=== PATIENT | female | born 1980 | race Caucasian/White ===

== ENCOUNTER 2023-06-17 21:10 | Emergency (ER) | payer OTHER, SELFPAY ==
[2023-06-17 21:16] VITALS: BP 120/80; PULSE 95; RESP 18; TEMP 36.6; O2SAT 100; BMI 24.9
--- NOTE | 2023-06-17 21:29 | ED_ITS ---
HPI - General Adult General Chief complaint: Headache Stated complaint: HEADACHE Time Seen by Provider: 06/17/23 21:23 Source: patient Mode of arrival: walk-in History of Present Illness HPI narrative: 43-year-old female presents for headache. It's frontal and she's had it for three days. She's been taking some ipwy-dxs-opoxdpm medications for it. She has a history of these headaches. No trauma fever or stiff neck and it's been continuous and it's moderate. No localized weakness. Related Data Home Medications Medication Instructions Recorded Confirmed levothyroxine 200 mcg tablet mcg 06/17/23 oxycodone-acetaminophen 10 mg-325 tab 06/17/23 mg tablet Previous Rx's Medication Instructions Recorded klasxsyhwh-dwvdhhtxlwkil-irsbvmrn 1 cap PO Q6H PRN pain 5 days #20 06/18/23 50 mg-300 mg-40 mg capsule caps (Fioricet) Allergies Allergy/AdvReac Type Severity Reaction Status Date / Time amoxicillin Allergy Verified 06/17/23 21:22 azithromycin [From Zithromax] Allergy Verified 06/17/23 21:22 Penicillins Allergy Verified 06/17/23 21:22 Review of Systems ROS Narrative A ten point review of systems is negative except as noted above. PFSH PFSH Social History Smoking status: Never smoker Exam Narrative Exam Narrative: Nurses note and vital signs reviewed and patient is not hypoxic. General: The patient appears well and in no apparent distress. Patient is resting comfortably on cart. Skin: Warm, dry, no pallor noted. There is no rash noted. Head: Normocephalic, atraumatic Eye: Normal conjunctiva, no drainage Ears, Nose, Mouth, and Throat: oral mucosa is moist. Nares patent. neck supple, no nuchal rigidity Cardiovascular: Regular Rate and Rhythm Respiratory: Patient is in no distress, no accessory muscle use, lungs are clear to auscultation, no wheezing, rales or rhonchi Back: non-tender GI: soft and nontender Musculoskeletal: The patient has no evidence of calf tenderness, no pitting edema, symmetrical pulses noted bilaterally Neurological: A&O, normal speech; upper and lower extremity strength intact and symmetric Psychiatric: Cooperative Constitutional Vital Signs, click to edit/add: Last Vital Signs Temp 97.9 F 06/17/23 21:16 Pulse 95 H 06/17/23 21:16 Resp 18 06/17/23 21:16 BP 120/80 06/17/23 21:16 Pulse Ox 100 06/17/23 21:16 O2 Del Method Room Air 06/17/23 21:16 Course Vital Signs Vital signs: Vital Signs Temperature 97.9 F 06/17/23 21:16 Pulse Rate 95 H 06/17/23 21:16 Respiratory Rate 18 06/17/23 21:16 Blood Pressure 120/80 06/17/23 21:16 Pulse Oximetry 100 06/17/23 21:16 Oxygen Delivery Method Room Air 06/17/23 21:16 Temperature 97.9 F 06/17/23 21:16 Pulse Rate 95 H 06/17/23 21:16 Respiratory Rate 18 06/17/23 21:16 Blood Pressure 120/80 06/17/23 21:16 Pulse Oximetry 100 06/17/23 21:16 Oxygen Delivery Method Room Air 06/17/23 21:16 Medical Decision Making MDM Narrative Medical decision making narrative: her workup including CAT scan is negative. Note is made of the possible technique finding on the CAT scan and physical examination shows no pharyngeal or retropharyngeal swelling. She is feeling improved and is able to be discharged home. Treatment diagnosis and follow-up were discussed with the patient. Differential Diagnosis Differential Diagnosis: intracranial hemorrhage, tension headache, sinusitis Lab Data Lab results reviewed: Yes I reviewed the patient's lab results Labs: Lab Results 06/17/23 Range/Units 21:48 WBC 6.9 (4.0-11.0) 10^3/uL RBC 3.69 L (4.20-5.40) 10^6/uL Hgb 11.1 L (12.0-16.0) g/dL Hct 34.7 L (36.0-48.0) % MCV 94.0 (81.0-99.0) fL MCH 30.1 (26.7-34.0) pg MCHC 32.0 (29.9-35.2) g/dL RDW 12.5 (11.0-15.0) % Plt Count 338 (150-450) 10^3/uL MPV 9.9 (9.5-13.5) fL Neut % (Auto) 37.7 L (43.0-75.0) % Lymph % (Auto) 45.0 (20.5-60.0) % [place] % (Auto) 8.6 (1.7-12.0) % Eos % (Auto) 7.7 H (0.9-7.0) % Baso % (Auto) 0.9 (0.2-2.0) % Neut # (Auto) 2.6 (1.4-6.5) 10^3/uL Lymph # (Auto) 3.1 (1.2-3.8) 10^3/uL [place] # (Auto) 0.6 (0.3-0.8) 10^3/uL Eos # (Auto) 0.5 (0.0-0.7) 10^3/uL Baso # (Auto) 0.1 (0.0-0.1) 10^3/uL Abs Immat Gran (auto) 0.01 (0.00-0.03) 10^3/uL Imm/Tot Granulo (auto) 0.1 (0.0-0.5) % Sodium 139 (136-145) mmol/L Potassium 3.6 (3.5-5.1) mmol/L Chloride 103 (98-107) mmol/L Carbon Dioxide 32.6 H (21.0-32.0) mmol/L Anion Gap 7.0 BUN 7.0 (7.0-18.0) mg/dL Creatinine 0.84 (0.55-1.02) mg/dL Est GFR ( Amer) >60 (>=60) Est GFR (Non-Af Amer) >60 (>=60) BUN/Creatinine Ratio 8.3 Glucose 87 (74-106) mg/dL Calcium 8.4 L (8.5-10.1) mg/dL TSH 1.745 (0.358-3.740) uIU/mL Imaging Data CT scan - head: Radiologist's impression: Procedure: CT head/brain wo con EXAM: CT head/brain wo con CLINICAL INDICATION: LÓPEZ COMPARISON: None TECHNIQUE: Axial CT images of the brain were obtained without contrast. Dose reduction techniques were achieved by using automated exposure control and/or adjustment of mA and/or kV according to patient size and/or use of iterative reconstruction technique. FINDINGS: Brain parenchyma: No mass effect or midline shift is seen. Acevedo-white differentiation is maintained. No findings suspicious for intracranial hemorrhage. No findings suggesting acute stroke. Ventricles and extra-axial spaces: Ventricles are concordant with sulci. No findings suggesting hydrocephalus. Visualized paranasal sinuses: No findings suggesting acute sinusitis. Mastoid air cells: Clear. Included portions of the orbits:Included portions of the orbits with no evidence of fracture or other acute pathology. Bones: No fracture is seen. Low-lying cerebellar tonsils measuring 3.8 mm below the foramen magnum. There is some soft tissue density noted along the right posterior nasopharynx effacing the right fossa of Rosenmuller, this may be due to technique, underlying lesion cannot be completely excluded, direct visualization recommended. Impression: 1. No acute intracranial process. 2. Low-lying cerebellar tonsils measuring 3.8 mm below the foramen magnum. 3. Soft tissue density noted along the right posterior nasopharynx effacing the right fossa of Rosenmuller, this may be due to technique, underlying lesion cannot be completely excluded, direct visualization recommended. Electronically authenticated by: SUSANNE FAULKNER Date: 06/18/2023 00:18 Discharge Plan Discharge Chief Complaint: Headache Clinical Impression: Headache Patient Disposition: Home, Self-Care Time of Disposition Decision: 00:31 Condition: Good Mode of Transportation: Private Vehicle Prescriptions / Home Meds: New tpejlidqfd-zecyopquyxwpw-soio [Fioricet] 50-300-40 mg capsule 1 cap PO Q6H PRN (Reason: pain) 5 Days Qty: 20 0RF No Action oxycodone-acetaminophen 10-325 mg tablet levothyroxine 200 mcg tablet Instructions: Acute Headache (ED) Additional Instructions: see your doctor at your appointment on Stand Alone Forms: Portal Instructions Referrals: Jon Rust MD [Primary Care Provider] - 1 week
[2023-06-17 21:55] LABS: Basophils Absolute Auto 0.1 10^3/uL (0.0-0.1); Basophils Percent Auto 0.9 % (0.2-2.0); Eosinophils Absolute Auto 0.5 10^3/uL (0.0-0.7); Eosinophils Percent Auto 7.7 % (0.9-7.0); Hematocrit 34.7 % (36.0-48.0); Hemoglobin 11.1 g/dL (12.0-16.0); Immature Granulocytes Abs Auto 0.01 10^3/uL (0.00-0.03); Immature Granulocytes Pct Auto 0.1 % (0.0-0.5); Lymphocytes Absolute Auto 3.1 10^3/uL (1.2-3.8); Mean Corpuscular Hemoglobin 30.1 pg (26.7-34.0); Mean Platelet Volume 9.9 fL (9.5-13.5); Monocytes Absolute Auto 0.6 10^3/uL (0.3-0.8); Monocytes Percent Auto 8.6 % (1.7-12.0); Neutrophils Absolute Auto 2.6 10^3/uL (1.4-6.5); Neutrophils Percent Auto 37.7 % (43.0-75.0); Platelet Count 338 10^3/uL (150-450); Red Blood Count 3.69 10^6/uL (4.20-5.40); Red Cell Distribution Width 12.5 % (11.0-15.0); White Blood Count 6.9 10^3/uL (4.0-11.0)
[2023-06-17 22:03] LABS: BUN Creatinine Ratio 8.3; Calcium 8.4 mg/dL (8.5-10.1); Carbon Dioxide 32.6 mmol/L (21.0-32.0); Chloride 103 mmol/L (98-107); Estimated GFR (African America >60 (>=60); Estimated GFR (Non-African Ame >60 (>=60); Glucose 87 mg/dL (74-106); Potassium 3.6 mmol/L (3.5-5.1); Sodium 139 mmol/L (136-145)
[2023-06-17] MEDS: 0.9 % SODIUM CHLORIDE 1,000 ML 1000 ML IV (22:13)
[2023-06-17] MEDS: DIPHENHYDRAMINE HCL 50 MG/ML (1ML) VIAL 25 MG IV (22:15)
[2023-06-17] MEDS: METHYLPREDNISOLONE SOD SUCC PF 125 MG/2 ML VIAL IVP (22:15)
[2023-06-17] MEDS: KETOROLAC TROMETHAMINE 30 MG/ML VIAL IVP (22:16)
[2023-06-17 22:50] LABS: Thyroid Stimulating Hormone 1.745 uIU/mL (0.358-3.740)
--- NOTE | 2023-06-17 23:17 | CT_ITS ---
The [address] [address] Patient Name: GUERDA HOPE MRN: [id number] date: 1980 Sex: F Assigned Patient Location: ER Current Patient Location: ER Accession/Order Number: [id number] Exam Date: 06/17/2023 23:27 Report Date: 06/18/2023 00:18 At the request of: CEFERINO ARIZMENDI Procedure: CT head/brain wo con EXAM: CT head/brain wo con CLINICAL INDICATION: LÓPEZ COMPARISON: None TECHNIQUE: Axial CT images of the brain were obtained without contrast. Dose reduction techniques were achieved by using automated exposure control and/or adjustment of mA and/or kV according to patient size and/or use of iterative reconstruction technique. FINDINGS: Brain parenchyma: No mass effect or midline shift is seen. Acevedo-white differentiation is maintained. No findings suspicious for intracranial hemorrhage. No findings suggesting acute stroke. Ventricles and extra-axial spaces: Ventricles are concordant with sulci. No findings suggesting hydrocephalus. Visualized paranasal sinuses: No findings suggesting acute sinusitis. Mastoid air cells: Clear. Included portions of the orbits:Included portions of the orbits with no evidence of fracture or other acute pathology. Bones: No fracture is seen. Low-lying cerebellar tonsils measuring 3.8 mm below the foramen magnum. There is some soft tissue density noted along the right posterior nasopharynx effacing the right fossa of Rosenmuller, this may be due to technique, underlying lesion cannot be completely excluded, direct visualization recommended. CT/CT head/brain wo con Impression: 1. No acute intracranial process. 2. Low-lying cerebellar tonsils measuring 3.8 mm below the foramen magnum. 3. Soft tissue density noted along the right posterior nasopharynx effacing the right fossa of Rosenmuller, this may be due to technique, underlying lesion cannot be completely excluded, direct visualization recommended. Electronically authenticated by: SUSANNE FAULKNER Date: 06/18/2023 00:18
[2023-06-17] MEDS: MORPHINE SULFATE 4 MG/ML VIAL IV (23:46)
== END 2023-06-18 01:12 | disposition home or self-care (01) ==
PROVIDERS: Emergency Provider Emergency Medicine; PCP Family Medicine
DX: R51.9 Headache, unspecified (principal); Z79.899 Other long term (current) drug therapy; Z79.890 Hormone replacement therapy
CPT/HCPCS: 36415; 70450; 80048; 84443; 85025; 96374; 96375; 99284; J2930